=== PATIENT | male | born 1965 | race Caucasian/White ===

== ENCOUNTER 2020-08-08 22:40 | Emergency (ER) | payer SELFPAY ==
[~2020-08-08] VITALS: Ht 170.2 cm; Wt 96.0 kg
[2020-08-09 00:57] LABS: BASOPHILS % 0.2 % (0.0-2.0); EOSINOPHILS % 0.2 % (0.0-5.0); HEMATOCRIT. 55.6 % (42.0-52.0); HEMOGLOBIN. 18.9 g/dL (14.0-18.0); LYMPHOCYTES % 9.9 % (20.0-50.0); MEAN CORPUSCULAR HEMOGLOBIN 30.7 pg (28.0-32.0); MEAN CORPUSCULAR VOLUME 90.1 fL (80.0-94.0); MEAN PLATELET VOLUME 9.3 fl (7.4-10.4); MONOCYTES % 8.7 % (2.0-8.0); PLATELET 259 x1000/uL (130-400); RED BLOOD CELL COUNT 6.17 mill/uL (4.7-6.1); RED CELL DISTRIBUTION WIDTH 13.3 % (11.6-14.6)
[2020-08-09 01:04] LABS: CHLORIDE 104 mEq/L (98-107)
[2020-08-09 03:06] LABS: CLARITY URINE CLEAR (CLEAR); COLOR URINE DARK YELLOW (YELLOW); KETONES URINE 1+ (NEGATIVE); LEUKOCYTE ESTERASE URINE 1+ (NEGATIVE); NITRITE URINE NEGATIVE (NEGATIVE); OCCULT BLOOD URINE NEGATIVE (NEGATIVE); PROTEIN URINE 4+ (NEGATIVE); SPECIFIC GRAVITY URINE 1.041 (1.005-1.030)
[2020-08-09 03:59] VITALS: BP 151/88
== END 2020-08-09 05:51 | disposition home or self-care (01) ==
LOC: ER 22:40
DX: K59.00 Constipation, unspecified (principal)
CPT/HCPCS: 36415; 74176; 80053; 81003; 85025; 93005; 99285